=== PATIENT | male | born 1975 | race Caucasian/White ===

== ENCOUNTER 2024-07-28 09:37 | Outpatient (RCR) | payer MEDICAID, SELFPAY ==
--- NOTE | 2024-07-28 10:00 | XR_ITS ---
Examination: MOOKIE, hepatobiliary radioisotope scan Gallbladder ejection fraction study. Date and time of exam: July 28, 2024 0954 hours INDICATIONS: Right upper abdominal pain gastritis burping heartburn 8 months Technique: 6.0 mCi of 99M Hepatolite administered. Serial imaging then obtained from immediate through 60 minutes. 2.2 mcg selective catheter Kinevac administered for gallbladder ejection fraction study. Findings: Radioisotope activity within the liver is reasonably homogenous. Gallbladder, common bile duct small bowel activity noted Impression: Gallbladder activity Abnormal gallbladder ejection fraction, 9%, normal greater than 35%
== END 2024-08-02 23:59 | disposition home or self-care (01) ==
LOC: SNUC 09:37
PROVIDERS: Referring Provider Internal Medicine Gastroenterology; Visit Provider Internal Medicine Gastroenterology
DX: R93.89 Abnormal findings on diagnostic imaging of other specified body structures (principal)
CPT/HCPCS: 78227; A9537; J2805